=== PATIENT | male | born 1980 | race Caucasian/White ===

== ENCOUNTER 2017-02-28 16:47 | Emergency (ER) | payer BC, OTHER ==
[~2017-02-28] VITALS: Ht 157.5 cm; Wt 65.0 kg
[2017-02-28 16:52] VITALS: Ht 157.5 cm; Wt 65.0 kg
[2017-02-28] MEDS ORDERED: SOD CHLORIDE 0.9% 1,000 ML IV STA (17:55)
[2017-02-28] MEDS ORDERED: ONDANSETRON 4 MG INJ IV STA (17:55)
--- NOTE | 2017-02-28 18:56 | RADRPT ---
PROCEDURE: XR Abdomen. CLINICAL INDICATION: Abdominal Pain TECHNIQUE: 3 frontal views of the abdomen. COMPARISON: None. FINDINGS: The bowel gas pattern is normal. There is no evidence of obstruction. There are no abnormal calcific ations overlying the urinary tracts. The osseus structures are unremarkable. IMPRESSION: Unremarkable abdomen radiograph. RPTAT: [facility] Physician Kalyani Date Time Electronically viewed and signed by Physician Kalyani on 02/28/2017 18:55 RS/
[2017-02-28 19:08] LABS: BASOPHILS % 0.3 % (0.0-2.0); EOSINOPHILS % 0.5 % (0.0-7.0); HEMATOCRIT 42.9 % (42.0-52.0); HEMOGLOBIN 14.8 g/dl (14.0-18.0); LYMPHOCYTES # 0.8 10^3/ul (0.8-2.9); LYMPHOCYTES % 13.8 % (15.0-51.0); MEAN CORPUSCULAR HEMOGLOBIN 29.7 pg (29.0-33.0); MEAN CORPUSCULAR HGB CONC 34.5 g/dl (32.0-37.0); MEAN CORPUSCULAR VOLUME 86.1 fl (82.0-101.0); MEAN PLATELET VOLUME 10.4 fl (7.4-10.4); MONOCYTE # 0.4 10^3/ul (0.3-0.9); MONOCYTES % 6.2 % (0.0-11.0); NEUTROPHILS % 78.7 % (39.0-77.0); PLATELET COUNT 193 10^3/UL (140-415); RED BLOOD COUNT 4.98 10^6/ul (4.70-6.10); RED CELL DISTRIBUTION WIDTH 12.6 % (11.5-14.5); WHITE BLOOD COUNT 6.1 10^3/ul (4.8-10.8)
[2017-02-28] MEDS ORDERED: KETOROLAC 30 MG INJ IV STA (19:23)
[2017-02-28 19:28] LABS: ALBUMIN 4.1 g/dl (3.3-4.9); ALBUMIN/GLOBULIN RATIO 1.1; BILIRUBIN,INDIRECT 0.4 mg/dl (0-1.1); BILIRUBIN,TOTAL 0.4 mg/dl (0.2-1.3); CALCIUM 8.9 mg/dl (8.4-10.2); CREATININE 0.91 mg/dl (0.61-1.24); POTASSIUM 3.3 mmol/L (3.5-5.1); TOTAL PROTEIN 7.8 g/dl (6.1-8.1)
[2017-02-28] MEDS ORDERED: METOCLOPRAMIDE 10 MG INJ IV ONE (19:30)
[2017-02-28] MEDS ORDERED: ONDANSETRON 4 MG INJ ONE (19:35)
[2017-02-28] MEDS ORDERED: BUSCOPAN PO (20:07)
[2017-02-28 20:11] LABS: ADD UMIC YES; UR ASCORBIC ACID NEGATIVE (NEGATIVE); UR BILIRUBIN (Dip) NEGATIVE (NEGATIVE); UR BLOOD (Dip) NEGATIVE (NEGATIVE); UR CLARITY TURBID (CLEAR); UR COLOR YELLOW (YELLOW); UR GLUCOSE (Dip) NEGATIVE (NEGATIVE); UR KETONES (Dip) 2+ mg/dL (NEGATIVE); UR LEUKOCYTE ESTERASE (Dip) NEGATIVE Leu/ul (NEGATIVE); UR MUCUS FEW /HPF (NONE SEEN); UR NITRITE (Dip) NEGATIVE (NEGATIVE); UR RBC 0 /HPF (0-5); UR SPECIFIC GRAVITY (Dip) 1.025 (1.003-1.030); UR TOTAL PROTEIN (Dip) NEGATIVE (NEGATIVE); UR UROBILINOGEN (Dip) NEGATIVE (NEGATIVE)
--- NOTE | 2017-02-28 20:17 | RADRPT ---
PROCEDURE: CT Abdomen and Pelvis without contrast CLINICAL INDICATION: Severe mid abdominal pain TECHNIQUE: Transaxial images were obtained through the abdomen and pelvis on a multi-slice scanner without the intravenous contrast administration. No oral contrast had previously been given. Sagit gilmar and coronal re-formations were subsequently reconstructed. One or more of the following dose reduction techniques were used: - Automated exposure control. - Adjustment of the mA and/or kV according to patient size. - Use of iterative reconstruction technique. Radiation dose: CTDIvol = 7.03 mGy; DLP = 354.21 mGy-cm. COMPARISON: No prior studies are available for comparison. FINDINGS: Lung bases: The visualized lung bases appear unremarkable. Liver: The liver is mildly enlarged but no focal lesion is identified. Gallbladder: The wall is not thickened. No radiopaque stones are identified. Bile ducts: The intra and extrahepatic bile ducts are normal in caliber. Pancreas: Appears normal with no mass or inflammation evident. Spleen: Normal in size with no focal lesion. Adrenals: Normal with no mass identified. Kidneys, ureters and bladder: The kidneys are normal in size and there is no mass, pathological calc ification, or hydronephrosis evident. There is no perinephric stranding. The ureters are normal in c aliber and no ureteroliths are identified. The bladder is suboptimally distended. Reproductive organs: Unremarkable. Stomach and bowel: The stomach is unremarkable. There is no evidence of bowel obstruction or inflam mation. There is stranding within the mesenteric fat within the inferior pelvis. Appendix: A normal vermiform appendix is evident. Peritoneum: No free intraperitoneal fluid or air is identified. Aorta: Normal in caliber with no aneurysmal dilatation. IVC: Unremarkable. Lymph nodes: No pathologically enlarged nodes are identified. Osseous structures: The osseous elements appear intact. IMPRESSION: 1. There is no evidence of bowel obstruction or inflammation and a normal vermiform appendix is loren dent. The stomach is mildly distended with fluid. There is slight stranding within the mesenteric f at within the inferior pelvis for which mild edema or inflammation cannot be excluded. 2. There is no evidence of urinary outflow obstruction or ureterolithiasis. The bladder is subopti deepthi distended but unremarkable. 3. Mild hepatomegaly with no focal lesion. 4. Otherwise, unremarkable non enhanced CT scan of the abdomen and pelvis. Physician Dominic Date Time Electronically viewed and signed by Tara Claudio Physician on 02/28/2017 20:16 /
[2017-02-28 20:30] VITALS: BP 124/81; PULSE 58; RESP 14; TEMP 98.3
[2017-02-28] MEDS ORDERED: LIDOCAINE/MYLANTA 40 ML BTL PO ONE (20:30)
[2017-02-28 21:19] LABS: COCAINE Negative (NEGATIVE)
[2017-02-28 21:32] LABS: BARBITURATES Negative (NEGATIVE); BENZODIAZEPINES Negative (NEGATIVE); CANNABINOIDS Positive (NEGATIVE); OPIATES Negative (NEGATIVE)
[2017-02-28] MEDS ORDERED: morphine 4 MG/ML VIAL IV ONE (21:38)
[2017-02-28] MEDS ORDERED: NAPR-688 PO (22:32)
[2017-02-28] MEDS ORDERED: METO10TA92 PO (22:32)
[2017-02-28] MEDS ORDERED: ONDA4TAB11 PO (22:32)
[2017-02-28] MEDS ORDERED: RANI150T9 PO (22:32)
--- NOTE | 2017-02-28 22:35 | ERD ---
ER Documentation Chief Complaint Date/Time DATE: 02/28/17 TIME: 22:32 Chief Complaint Complains of vomiting blood HPI This 36-year-old male comes emergency room because he had abdominal pain today and vomited a few times and had blood streaking in the most recent. Denies fever and chills. Does not have any diarrhea or constipation. History of inguinal hernia repair. ROS All systems reviewed and are negative except as per history of present illness. Medications Home Meds Active Scripts Ranitidine Hcl* (Zantac*) 150 Mg Tablet, 150 MG PO BID, #30 TAB Prov:VIRIDIANA DELEON DO 02/28/17 Naproxen* (Naproxen*) 500 Mg Tablet, 500 MG PO BID Y for PAIN, #20 TAB Prov:VIRIDIANA DELEON DO 02/28/17 Ondansetron (Zofran Odt) 4 Mg Tab.rapdis, 4 MG PO Q6 for NAUSEA, #10 Prov:VIRIDIANA DELEON DO 02/28/17 Metoclopramide* (Reglan*) 10 Mg Tablet, 10 MG PO Q6 Y for NAUSEA AND/OR VOMITING , #10 TAB Prov:VIRIDIANA DELEON DO 02/28/17 Reported Medications [[place]] No Conflict Check, 1 TAB PO DAILY 02/28/17 Allergies Allergies: Coded Allergies: acetaminophen (Verified Allergy, Mild, ITCHING, 02/28/17) hydrocodone (Verified Allergy, Mild, ITCHING, 02/28/17) PMhx/Soc History of Surgery: Yes (INGUANAL HERNIA) Anesthesia Reaction: No Hx Neurological Disorder: No Hx Respiratory Disorders: Yes (ATHSMA) Hx Cardiac Disorders: No Hx Psychiatric Problems: No Hx Miscellaneous Medical Probl: No Hx Alcohol Use: Yes (SOCIALLY) Hx Substance Use: Yes (SMOKES MEDICINAL MARIJUANA EVERY DAY) Hx Tobacco Use: No Smoking Status: Current every day smoker Physical Exam Vitals Vital Signs Date Time Temp Pulse Resp B/P Pulse Ox O2 Delivery O2 Flow Rate FiO2 02/28/17 20:30 98.3 58 14 124/81 100 Room Air 02/28/17 18:30 98.3 46 18 107/74 100 Room Air 02/28/17 16:52 98.1 68 20 134/100 99 Physical Exam Const: [] Head: Atraumatic Eyes: Normal Conjunctiva ENT: Normal External Ears, Nose and Mouth. Neck: Full range of motion..~ No meningismus. Resp: Clear to auscultation bilaterally Cardio: Regular rate and rhythm, no murmurs Abd: Soft, non tender, non distended. Normal bowel sounds Skin: No petechiae or rashes Back: No midline or flank tenderness Ext: No cyanosis, or edema Neur: Awake and alert Psych: Normal Mood and Affect Result Diagram: 02/28/17 1845 02/28/17 1845 Results 24 hrs Laboratory Tests Test 02/28/17 18:45 02/28/17 19:45 White Blood Count 6.110^3/ul Red Blood Count 4.9810^6/ul Hemoglobin 14.8g/dl Hematocrit 42.9% Mean Corpuscular Volume 86.1fl Mean Corpuscular Hemoglobin 29.7pg Mean Corpuscular Hemoglobin Concent 34.5g/dl Red Cell Distribution Width 12.6% Platelet Count 65725^3/UL Mean Platelet Volume 10.4fl Neutrophils % 78.7% Lymphocytes % 13.8% Monocytes % 6.2% Eosinophils % 0.5% Basophils % 0.3% Nucleated Red Blood Cells % 0.0/100WBC Neutrophils # (Manual) 4.810^3/ul Lymphocytes # 0.810^3/ul Monocytes # 0.410^3/ul Eosinophils # 0.010^3/ul Basophils # 0.010^3/ul Nucleated Red Blood Cells # 0.010^3/ul Sodium Level 141mmol/L Potassium Level 3.3mmol/L Chloride Level 101mmol/L Carbon Dioxide Level 23mmol/L Anion Gap 20 Blood Urea Nitrogen 22mg/dl Creatinine 0.91mg/dl Glucose Level 103mg/dl Calcium Level 8.9mg/dl Total Bilirubin 0.4mg/dl Direct Bilirubin 0.00mg/dl Indirect Bilirubin 0.4mg/dl Aspartate Amino Transf (AST/SGOT) 22IU/L Alanine Aminotransferase (ALT/SGPT) 23IU/L Alkaline Phosphatase 59IU/L Total Protein 7.8g/dl Albumin 4.1g/dl Globulin 3.70g/dl Albumin/Globulin Ratio 1.10 Urine Color YELLOW Urine Clarity TURBID Urine pH 7.0 Urine Specific [place] 1.025 Urine Ketones 2+mg/dL Urine Nitrite NEGATIVEmg/dL Urine Bilirubin NEGATIVEmg/dL Urine Urobilinogen NEGATIVEmg/dL Urine Leukocyte Esterase NEGATIVELeu/ul Urine Microscopic RBC 0/HPF Urine Microscopic WBC 6/HPF Urine Mucus FEW/HPF Urine Hemoglobin NEGATIVEmg/dL Urine Glucose NEGATIVEmg/dL Urine Total Protein NEGATIVEmg/dl Urine Opiates Screen Negative Urine Barbiturates Negative Urine Amphetamines Screen Negative Urine Benzodiazepines Screen Negative Urine Cocaine Screen Negative Urine Cannabinoids Positive Current Medications Medications (Trade) Dose Ordered Sig/Edda Route PRN Reason Start Time Stop Time Status Last Admin Dose Admin Sodium Chloride (NS) 1,000 ml @ 1,000 mls/hr Q1H STAT IV 02/28/17 17:55 02/28/17 20:16 DC 02/28/17 20:30 Ondansetron HCl (Zofran Inj) 4 mg ONCE STAT IV 02/28/17 17:55 02/28/17 20:16 DC 02/28/17 20:29 Metoclopramide HCl (Reglan) 10 mg ONCE ONCE IV 02/28/17 19:30 02/28/17 19:31 DC 02/28/17 19:46 Ketorolac Tromethamine (Toradol) 30 mg ONCE STAT IV 02/28/17 19:23 02/28/17 19:26 DC 02/28/17 19:45 Ondansetron HCl (Zofran Inj) 4 mg STK-MED ONCE .ROUTE 02/28/17 19:35 02/28/17 19:36 DC Miscellaneous Medication (Gi Cocktail (2)) 40 ml ONCE ONCE PO 02/28/17 20:30 02/28/17 20:31 DC 02/28/17 20:28 Morphine Sulfate (morphine) 4 mg ONCE ONCE IV 02/28/17 21:38 02/28/17 21:39 DC 02/28/17 21:44 Procedures/MDM Abdominal pain possibly secondary to viral etiology. Nausea vomiting resolved with IV Zofran and Reglan in the emergency room. Patient is also given Toradol which helped significant his pain. Is also given morphine which alleviated his pain. He was also hydrated with normal saline. No significant abnormalities found on imaging or laboratories. Admit to discharge primary care follow-up as well as Zantac, naproxen, Zofran and Reglan. Return precautions to the ER also given. X-ray abdomen two-view interpretation by myself: I see no acute process, nonspecific bowel gas pattern, no obstruction, no free air, no fractures CT abdomen pelvis interpretation: I see no acute processes of her mild fat stranding in the lower abdomen, see no obstruction, no free air, no intra- abdominal organ abnormalities, no fractures. Departure Diagnosis: Primary Impression: Acute abdominal pain Additional Impression: Hematemesis Condition: Stable Patient Instructions: Abdominal Pain, Vomiting (6Y-Adult) Additional Instructions: Call your primary care doctor TOMORROW for an appointment during the next 2-3 days.See the doctor sooner or return here if your condition worsens before your appointment time. VIRIDIANA DELEON DO Feb 28, 2017 22:35
== END 2017-02-28 22:57 | disposition home or self-care (01) ==
LOC: E/R 16:47
DX: R10.9 Unspecified abdominal pain (principal); F17.210 Nicotine dependence, cigarettes, uncomplicated; J45.909 Unspecified asthma, uncomplicated
CPT/HCPCS: 36415; 74010; 74176; 80053; 80307; 81001; 85025; 96374; 96375; J1885; J2270; J2405; J2765; J7030; Z7502; Z7610